=== PATIENT | male | born 1995 | race Hispanic/Latino ===

== ENCOUNTER 2023-01-06 18:44 | Emergency (ER) | payer SELFPAY ==
--- NOTE | ~2023-01-06 | XR_ITS ---
Clinical Indication: Chest pain PA and lateral views of the chest: Comparison: None Findings: The lungs are clear, without evidence of focal consolidation or pleural effusion. Cardiome diastinal silhouette is within normal limits. Bones and soft tissues are unremarkable. Impression: Normal chest. Reviewed, dictated and finalized at location . Impression: Normal chest.
--- NOTE | ~2023-01-06 | CT_ITS ---
EXAMINATION: CT abdomen pelvis w con INDICATION: Right-sided abdominal pain TECHNIQUE: Computed tomographic images of the abdomen and pelvis were obtained after the administrati on of 100 cc of Omnipaque 350 intravenous contrast. The dose-length product (DLP) was 1432.59 mGy-cm. Automated exposure control and iterative reconstruction technique were employed. COMPARISON: None available FINDINGS: Minimal dependent atelectasis is present in the lung bases. The heart size is normal. The l iver is diffusely low in attenuation when compared with the spleen, consistent with hepatic steatosis . The spleen, pancreas, gallbladder, and adrenal glands are normal. Cysts of the kidneys measure up t o 11 mm on the right. No pathologically enlarged abdominal or pelvic lymph nodes are identified. A re troaortic left renal vein is noted. No free intraperitoneal gas or evidence of bowel obstruction. The appendix is normal. There is submucosal fat deposition in the distal small bowel and proximal colon which is nonspecific but can be seen in the setting of inflammatory bowel disease. IMPRESSION: 1. No CT correlate for the patient's symptoms. Reviewed, dictated and finalized at location A.
[2023-01-06 18:46] VITALS: BP 155/97; PULSE 100; RESP 18; TEMP 36.9; O2SAT 100
--- NOTE | 2023-01-06 18:50 | ECG_ITS ---
Measurements Intervals Fisher Rate: 100 P: 28 MS: 160 QRS: 16 QRSD: 96 T: 32 QT: 320 QTc: 413 Interpretive Statements SINUS TACHYCARDIA BORDERLINE ECG NO PREVIOUS ECG AVAILABLE FOR COMPARISON Electronically Signed On 01-06-2023 19:44:14 CDT by Berhane Ricks D.O.
[2023-01-06 19:06] LABS: Basophils Percent Auto 0.5 % (0.2-1.2); Eosinophils Absolute Auto 0.2 K/mm3 (0-0.3); Eosinophils Percent Auto 2.5 % (0-4.4); Hematocrit 40.7 % (42.0-52.0); Immature Granulocyte Absolute 0.03 K/mm3 (0.00-0.031); Immature Granulocyte Percent A 0.3 % (0-0.5); Lymphocytes Absolute Auto 2.26 K/mm3 (0.9-3.2); Lymphocytes Percent Auto 25.7 % (18.3-44.2); Mean Corpuscular HGB Conc 34.4 g/dl (32-36); Mean Corpuscular Hemoglobin 28.1 pg (26-34); Mean Corpuscular Volume 81.6 fl (80-100); Mean Platelet Volume 9.7 fl (7.4-10.4); Monocytes Absolute Auto 0.9 K/mm3 (0.1-0.6); Monocytes Percent Auto 9.7 % (2.6-8.5); Neutrophils Absolute Auto 5.4 K/mm3 (1.3-6.7); Neutrophils Percent Auto 61.3 % (45.5-73.1); Platelet Count Result 316 k/mm3 (150-375); Red Blood Count 4.99 M/mm3 (4.6-6.20); Red Cell Distribution Width 12.5 % (11.5-14.5); White Blood Count 8.8 K/mm3 (4.5-10.0)
[2023-01-06 19:18] LABS: Alanine Aminotransferase 68 U/L (6-50); Albumin Level 4.7 g/dL (3.5-5.1); Alkaline Phosphatase 79 U/L (38-126); Anion Gap 12 mmol/L (8-16); Aspartate Amino Transferase 41 U/L (17-59); Bilirubin,Total 0.5 mg/dL (0.2-1.3); Blood Urea Nitrogen 13 mg/dL (9-20); Calcium 9.3 mg/dL (8.4-10.2); Carbon Dioxide 29 mmol/L (22-30); Chloride 99 mmol/L (98-107); Estimated CRCL calculation 140 ml/min; Estimated Glomerular Filt Rate > 60; Glucose 89 mg/dL (65-110); Lipase 106 U/L (23-300); Sodium 140 mmol/L (137-145)
[2023-01-06 19:23] LABS: INR 0.9; Prothrombin Time 12.9 Seconds (11.1-14.7)
[2023-01-06 19:28] LABS: Partial Thromboplastin Time 26.1 SECONDS (22.3-36.8)
[2023-01-06 19:29] LABS: Troponin I < 0.012 ng/mL (0.000-0.034)
--- NOTE | 2023-01-06 21:03 | ED.GENADULT ---
HPI - General Adult General Chief complaint: Abdominal Pain Stated complaint: R sided abd pain, Time Seen by Provider: 01/06/23 20:16 History of Present Illness HPI narrative: This is a 27-year-old male presenting with 1 month of right-sided abdominal pain. It is in the right mid abdomen, is sharp and sometimes goes to his back. Ten out 10 intensity and comes and goes. He has never had pain like this before there are no exacerbating alleviating factors. No is a cause and having decreased appetite as he had an episode of diarrhea today but not for the rest of the month. He denies fever chills chest pain shortness of breath urinary symptoms. No history of gallbladder disease. No nausea or vomiting. No surgeries on the abdomen. Related Data Allergies Allergy/AdvReac Type Severity Reaction Status Date / Time No Known Allergies Allergy Verified 01/06/23 21:15 [facility] Past Medical History Medical History HTN (hypertension) Exam Narrative: APPEARANCE: No apparent distress. Head: atraumatic. EYES: EOMI, NOSE: Atraumatic NECK: Trachea midline RESPIRATORY: No increased rate of breathing CARDIOVASCULAR: RRR, ABDOMINAL: Abdomen is soft nontender with no guarding rebound, point of care right upper quadrant ultrasound revealed no thickening of the gallbladder wall, pericholecystic fluid or sonographic Brown's. MUSCULOSKELETAl: No obvious deformities NEURO: Alert. Moving 4/4 extremities SKIN:: Warm, dry. Normal color PSYCHIATRIC: Normal affect Course Vital Signs Vital signs: Vital Signs Temperature 98.5 F 01/06/23 18:46 Pulse Rate 100 01/06/23 18:46 Respiratory Rate 18 01/06/23 18:46 Blood Pressure 155/97 H 01/06/23 18:46 Pulse Oximetry 100 01/06/23 18:46 Oxygen Delivery Room Air 01/06/23 18:46 Temperature 98.5 F 01/06/23 18:46 Pulse Rate 95 01/06/23 21:19 Respiratory Rate 25 H 01/06/23 21:19 Blood Pressure 133/81 01/06/23 21:19 Pulse Oximetry 99 01/06/23 21:19 Oxygen Delivery Room Air 01/06/23 18:46 Medical Decision Making [facility] Narrative Medical decision making narrative: -Course: 19-year-old male presenting with right-sided abdominal pain. patient's workup was negative. On re-evaluation patient is resting comfortably. Abdominal exam is benign. No clear etiology of his pain at this time. Patient discharged primary care follow-up. -DDX includes but is not limited to: Gastritis, gallbladder disease, pancreatitis, colonic spasm, appendicitis -Co-morbidities complicating care: hypertension -Social determinants of health: iron were, lives in [place] -Independent interpretation of studies: laboratory studies within acceptable limits. Urine negative. Chest x-ray unremarkable. CT abdomen pelvis was unremarkable. Point of care right upper quadrant ultrasound showed no evidence of cholecystitis. -Interventions: 2 L normal saline, Dilaudid, Toradol, Tylenol -Shared decision making / Disposition: discharged Vital Signs Vital Signs: Vital Signs Temperature 98.5 F 01/06/23 18:46 Pulse Rate 100 01/06/23 18:46 Respiratory Rate 18 01/06/23 18:46 Blood Pressure 155/97 H 01/06/23 18:46 Pulse Oximetry 100 01/06/23 18:46 Oxygen Delivery Room Air 01/06/23 18:46 Temperature 98.5 F 01/06/23 18:46 Pulse Rate 95 01/06/23 21:19 Respiratory Rate 25 H 01/06/23 21:19 Blood Pressure 133/81 01/06/23 21:19 Pulse Oximetry 99 01/06/23 21:19 Oxygen Delivery Room Air 01/06/23 18:46 Lab Data 01/06/23 21:30 01/06/23 21:30 Labs: Lab Results 01/06/23 01/06/23 01/06/23 Range/Units 18:57 21:16 21:29 WBC 8.8 (4.5-10.0) K/mm3 RBC 4.99 (4.6-6.20) M/mm3 Hgb 14.0 (14.0-18.0) g/dL Hct 40.7 L (42.0-52.0) % MCV 81.6 (80-100) fl MCH 28.1 (26-34) pg MCHC 34.4 (32-36) g/dl RDW 12.5 (11.5-14.5) % Plt Coun
[2023-01-06] MEDS: SODIUM CHLORIDE 0.9% IV 1,000 ML 999 ML IV CONT (21:16)
[2023-01-06] MEDS: ACETAMINOPHEN 500 MG TABLET 1000 MG PO (21:17)
[2023-01-06] MEDS: KETOROLAC 15 MG/ML VIAL (*BKC) IV PUSH (21:17)
[2023-01-06] MEDS: HYDROmorphone HCL INJ (*CRX) 1 MG/ML SYR 0.5 MG IV PUSH (21:17)
[2023-01-06 21:19] VITALS: BP 133/81; PULSE 95; RESP 25; O2SAT 99
[2023-01-06 21:28] LABS: Glucose Point of Care 103 mg/dl (65-105)
[2023-01-06 21:31] VITALS: BP 132/79; PULSE 90; RESP 17; O2SAT 99
[2023-01-06 21:36] LABS: Basophils Percent Auto 0.2 % (0.2-1.2); Eosinophils Absolute Auto 0.2 K/mm3 (0-0.3); Eosinophils Percent Auto 2.6 % (0-4.4); Hematocrit 41.1 % (42.0-52.0); Immature Granulocyte Absolute 0.03 K/mm3 (0.00-0.031); Immature Granulocyte Percent A 0.4 % (0-0.5); Lymphocytes Absolute Auto 2.02 K/mm3 (0.9-3.2); Lymphocytes Percent Auto 24.7 % (18.3-44.2); Mean Corpuscular HGB Conc 34.1 g/dl (32-36); Mean Corpuscular Hemoglobin 27.9 pg (26-34); Mean Platelet Volume 9.5 fl (7.4-10.4); Monocytes Absolute Auto 0.6 K/mm3 (0.1-0.6); Monocytes Percent Auto 7.7 % (2.6-8.5); Neutrophils Absolute Auto 5.3 K/mm3 (1.3-6.7); Neutrophils Percent Auto 64.4 % (45.5-73.1); Platelet Count Result 310 k/mm3 (150-375); Red Blood Count 5.01 M/mm3 (4.6-6.20); Red Cell Distribution Width 12.6 % (11.5-14.5); White Blood Count 8.2 K/mm3 (4.5-10.0)
[2023-01-06 21:46] LABS: Lactic Acid Reflex 2.3 mmol/L (0.7-2.0)
[2023-01-06 21:47] LABS: Alanine Aminotransferase 65 U/L (6-50); Albumin Level 4.6 g/dL (3.5-5.1); Alkaline Phosphatase 86 U/L (38-126); Anion Gap 12 mmol/L (8-16); Aspartate Amino Transferase 41 U/L (17-59); Bilirubin,Total 0.6 mg/dL (0.2-1.3); Blood Urea Nitrogen 13 mg/dL (9-20); Calcium 9.2 mg/dL (8.4-10.2); Carbon Dioxide 25 mmol/L (22-30); Chloride 100 mmol/L (98-107); Estimated CRCL calculation 183 ml/min; Estimated Glomerular Filt Rate > 60; Glucose 95 mg/dL (65-110); Lipase 80 U/L (23-300); Potassium 3.8 mmol/L (3.4-5.0); Sodium 137 mmol/L (137-145)
[2023-01-06 22:03] VITALS: BP 127/84; PULSE 88; RESP 17; O2SAT 98
[2023-01-06 22:06] LABS: Appearance Urine Clear (Clear); Bilirubin Urine Negative (Negative); Blood Urine Negative (Negative); Color Urine Yellow (Yellow); Glucose Urine UA Negative (Negative); Ketones Urine Negative (Negative); Leukocyte Esterase Ur Negative LEU/UL (Negative); Nitrate Urine Negative (Negative); Protein Urine Negative (Negative); Specific Grav Ur 1.026 (1.001-1.035)
[2023-01-06 22:17] LABS: Add Urine Microscopic? NO
[2023-01-06 22:23] LABS: Troponin I < 0.012 ng/mL (0.000-0.034)
[2023-01-06 23:20] VITALS: BP 130/85; PULSE 82; RESP 17; O2SAT 100
[2023-01-07 00:33] LABS: Reflex Lactic Acid Yes or No Add Lactic
[2023-01-07 00:53] VITALS: BP 138/83; PULSE 78; RESP 17; O2SAT 98
== END 2023-01-07 00:20 | disposition home or self-care (01) ==
PROVIDERS: Emergency Medicine; Emergency Provider Emergency Medicine
DX: R10.9 Unspecified abdominal pain (principal); I10 Essential (primary) hypertension
CPT/HCPCS: 36415; 71046; 74177; 80053; 81003; 82948; 83605; 83690; 84484; 85025; 85610; 85730; 93005; 96361; 96374; 96375; 99284; A9270; J1170; J1885; J7030; Q9967